=== PATIENT | female | born 1995 | race Caucasian/White ===

== ENCOUNTER 2018-05-03 06:00 | Inpatient (IN) ==
[2018-05-03] MEDS ORDERED: EPHEDrine 50 MG/ML VIAL IVP PRN (07:12)
[2018-05-03] MEDS ORDERED: Lidocaine -MPF 1% 2 ML VIAL ONE (07:12)
--- NOTE | 2018-05-03 07:14 | Anesthesia Evaluation PreOp ---
Date of Encounter: 05/03/18 Time of Encounter: 07:05 - Past History Planned Operation: vaginal del, induction previous PPH Cardiac History: Denies any Significant Hx Pulmonary History: Denies Any Significant HX MANAGER BUSINESS PROCESS History: Denies Any Significant HX Other Medical History: Other (depression) Anesthesia History: No Prior Anesthetic Complications, Past Anesthesia ( previous epidural "worked fine") Alcohol Use: none Drug use: none Medications and Allergies Escitalopram [Lexapro] 10 mg PO DAILY 02/25/16 [History] Flintstones Complete 1 tab PO DAILY 05/03/18 [History] 3 Allergy/AdvReac Type Severity Reaction Status Date / Time No Known Allergies Allergy Verified 08/31/17 11:03 Anesthesia Exam - HEENT Pupil (Motor): Pupils equal Mallampati: III Teeth: Normal Oral Opening: Greater than 3 - MANAGER BUSINESS PROCESS LOC: Oriented MANAGER BUSINESS PROCESS Motor: Normal RUE, Normal LUE, Normal RLE, Normal LLE, Normal Face MANAGER BUSINESS PROCESS Sensory: Normal: RUE, LUE, RLE, LLE, Face - Cardiac Rhythm: Regular Murmur: None - Pulmonary Breath Sounds: bilateral Clear Respiratory Effort: Symmetrical Anesthesia Assess/Plan ASA Score: 2 Modified Salbador Scale for Level of Consciousness: Cooperative, oriented, and tranquil Anesthetic Plan: General, Regional Monitoring Plan: Standard Monitors Recovery Plan: PACU
[2018-05-03] MEDS ORDERED: Epidural Premix (fent/bupiv) 110 ML EP SCH (07:15)
[2018-05-03] MEDS ORDERED: Metoclopramide 10 MG/2 ML VIAL IVP PRN ×2 (07:41→17:21)
[2018-05-03] MEDS ORDERED: Ondansetron 4 MG/2 ML VIAL IVP PRN ×2 (07:41→17:21)
[2018-05-03] MEDS ORDERED: *HR* Nalbuphine 10 MG/ML AMPUL IVP PRN (07:41)
[2018-05-03] MEDS ORDERED: Famotidine 20 MG/2 ML VIAL IVP PRN (07:41)
[2018-05-03] MEDS ORDERED: Ringers Solution, Lactated 1,000 ML IVC SCH (07:45)
[2018-05-03] MEDS ORDERED: Oxytocin 20 units/ LR 1000 mL 20 UNIT/1,000 ML BAG IVC SCH (07:45)
[2018-05-03] MEDS ORDERED: Penicillin G Potassium 5,000,000 UNIT in 0.9 % Sodium Chloride Mini Bag 100 ML IVPB ONE (08:00)
[2018-05-03] MEDS ORDERED: Penicillin G Potassium 2,500,000 UNIT in 0.9 % Sodium Chloride 100 ML IVPB SCH (12:00)
[2018-05-03 12:40] LABS: Basophils % 0.2 %; Eosinophils # 0.1 K/mcL (0.0-0.6); Eosinophils % 0.5 %; Hematocrit 41.9 % (35.3-44.9); Hemoglobin 14.1 g/dL (11.5-15.4); Lymphocytes # 2.1 K/mcL (0.6-4.6); Lymphocytes % 20.5 %; Mean Corpuscular HGB Conc 33.7 g/dL (31.6-35.5); Mean Corpuscular Volume 89.1 fL (83.0-100.0); Monocytes # 0.8 K/mcL (0.0-1.3); Monocytes % 7.5 %; Neutrophils # 7.2 K/mcL (1.6-8.9); Platelet Count 194 K/mcL (140-400); Red Cell Distribution Width 13.4 % (11.5-14.5); Segmented Neutrophils % 70.3 %
[2018-05-03 13:16] LABS: Amphetamine Screen,Urine Negative ng/mL (Cutoff=1000); Barbiturate Screen,Urine Negative ng/mL (Cutoff=200); Benzodiazepines Screen,Urine Negative ng/mL (Cutoff=200); Cannabinoid Screen,Urine Negative ng/mL (Cutoff = 50); Cocaine Screen,Urine Negative ng/mL (Cutoff= 300); Opiate Screen,Urine Negative ng/mL (Cutoff=300); Phencyclidine Screen,Urine Negative ng/mL (Cutoff=25)
[2018-05-03] MEDS ORDERED: *HR* FentaNYL (PF) 100 MCG/2 ML VIAL ONE (13:42)
--- NOTE | 2018-05-03 13:50 | OB Labor Progress Note ---
Date of Encounter: 05/03/18 Time of Encounter: 13:22 Labor Progress Note - Subjective Subjective: Pt states she thinks her water broke, large amount of bleeding noted on pad, ambulated to restroom, large clots noted on floor and in toilet. - Heart Tones Heart Tones: cat 1 - Interventions Interventions: called to room at 1322. large amount of bleeding noted. Cervical exam shows vaginal vault filled with clots, Dr. Alberts called to bedside, Dr. Downing called to hospital. Unable to reach cervix through clots, speculum exam shows thick clots and active bleeding, Large amount of clots cleared from vagina. 350g loss on pad plus more on floor and in toilet. Cervix 4/80/-2/vtx noted. Dr. Alberts present for speculum exam, decision to prep for section made and patient consented by Dr. Alberts - Plan Plan: Dr. Downing and Aristeo notified and called to bedside. Prep for section Type and cross of 2 units.
[2018-05-03] MEDS ORDERED: *HR* Oxytocin 10 UNIT/ML VIAL IM ONE (13:53)
[2018-05-03] MEDS ORDERED: *HR* Succinylcholine 200 MG/10 ML VIAL IVP ONE (13:53)
[2018-05-03] MEDS ORDERED: Propofol 500 MG/50 ML INFUS..BTL ONE (13:53)
[2018-05-03] MEDS ORDERED: *HR* Phenylephrine 10 MG/ML VIAL ONE (13:54)
[2018-05-03] MEDS ORDERED: *HR* Morphine Sulfate/PF 10 MG/10 ML AMPUL ONE ×2 (13:58→14:26)
--- NOTE | 2018-05-03 14:33 | OB/GYN Procedure Note ---
Section - Date of procedure: 05/03/18 Preop diagnosis: other (abruption) Post-op diagnosis: same Procedure: section, primary low transverse Surgeon: Storm Carr Quantitated Blood Loss: 500 Was there an travel assistant present: Yes Shore Hand Dredge Or Barge: Irma Duffy Anesthesiologist: Lindsay Vaughan Per Diem Physical Therapist Assistant: Emelia West Anesthesia Type: General section complications: none Disposition: PACU Specimens: Placenta, Cord blood, Cord gasses - (s) Infant A Delivery Date: 05/03/18 Infant Delivery Time: 14:34 Presentation: vertex Position: OA Route of delivery: other Gender: Male Viability: Viable Pounds: 6 Ounces: 13 Gram Weight: 3.095 kg at 1 minute: 4 at 5 minutes: 6 at 10 minutes: 7 Specimens collected: cord blood, arterial cord gases Placenta: partial extraction Cord: 3 umbilical vessels - Narrative Narrative: 23-year-old female scheduled for induction of labor at 39+ weeks. Patient was induced with Pitocin. Patient progressed to 4 cm and began having heavy vaginal bleeding with clots. Patient checked by wage and hour investigator found to be bleeding heavily with large clots in the vagina. Patient taken for stat section. Informed consent obtained. Patient taken back to the operating room with her IV in place. Patient was given general anesthesia. Betadine wash performed. Once patient asleep a peristalsis was made carried sharply through subcutaneous taste and fatty tissue to the fascial layer Treese. The fascia was then incised bilaterally and dissected bluntly. Rectus abdominis musculature was severed the midline. The peritoneum was entered sharply entered. The incision was bluntly extended. A bladder blade was placed at the inferior margin incision. Bladder flap developed. A low transverse incision was then made lower segment of the uterus. Infant's head was visible. A vacuum was utilized to bring the infant's head up. Infant was then delivered without difficulty. Infant cried on delivery cord clamped and cut. Infant passed to NICU team in attendance. Cord blood and gases obtained. Placenta delivered via uterine lavage and massage. Uterine incision was then closed the Vicryl suture running locking fashion. Uterus was placed the pelvic cavity pelvic cavity was rinsed thoroughly with sterile water times 2C no bleeding the procedure was terminated. Sponge, needle, and instrument counts correct 2. The fascia was then closed with 0 Vicryl suture running nonlocking fashion. Suprafascial region service early sterile water 2 all bleeders cauterized. The skin was closed speedy.
[2018-05-03] MEDS ORDERED: Ondansetron 4 MG/2 ML VIAL IVP ONE (14:42)
[2018-05-03] MEDS ORDERED: Acetaminophen IV 1,000 MG/100 ML INFUS..BTL IVPB ONE (14:42)
[2018-05-03] MEDS ORDERED: *HR* Morphine 2 MG/ML SYRINGE IVP PRN (14:42)
[2018-05-03] MEDS ORDERED: Naloxone 0.4 MG/ML INJ IVP PRN (14:45)
[2018-05-03] MEDS ORDERED: *HR* HYDROmorphone 20 MG/20 ML PCA IVC PRN (14:45)
[2018-05-03] MEDS ORDERED: Rho Immune Globulin 1,500 UNIT SYRINGE IM ONE (17:21)
[2018-05-03] MEDS ORDERED: Sennosides 8.6 MG TABLET PO PRN (17:21)
[2018-05-03] MEDS ORDERED: Lanolin 28 GM TUBE TP PRN (17:21)
[2018-05-03] MEDS ORDERED: Ondansetron 4 MG/2 ML VIAL ONE (17:54)
[2018-05-03] MEDS ORDERED: Dexamethasone 4 MG/ML VIAL ONE (17:54)
[2018-05-03] MEDS: cefOXitin 1,000 MG in 0.9 % Sodium Chloride Mini Bag 100 ML IVPB SCH (18:42)
[2018-05-03] MEDS: *HR* OxyCODONE/APAP 5/325 TABLET PO PRN (20:33)
[2018-05-03] MEDS: Oxytocin 20 units/ LR 1000 mL 20 UNIT/1,000 ML BAG IVC SCH ×2 (23:21→23:22)
[2018-05-04] MEDS: Ibuprofen 600 MG TABLET PO PRN ×3 (00:18→20:15)
[2018-05-04] MEDS: cefOXitin 1,000 MG in 0.9 % Sodium Chloride Mini Bag 100 ML IVPB SCH ×2 (03:07→09:30)
[2018-05-04] MEDS: *HR* OxyCODONE/APAP 5/325 TABLET PO PRN ×4 (04:23→16:44)
[2018-05-04 04:48] LABS: Basophils % 0.2 %; Eosinophils % 0.1 %; Hematocrit 22.8 % (35.3-44.9); Immature Granulocytes % 0.5 % (0-4); Lymphocytes # 1.2 K/mcL (0.6-4.6); Lymphocytes % 10.5 %; Mean Corpuscular HGB Conc 34.2 g/dL (31.6-35.5); Mean Corpuscular Hemoglobin 29.3 pg (28.0-33.3); Mean Corpuscular Volume 85.7 fL (83.0-100.0); Mean Platelet Volume 9.6 fL (9.4-12.4); Monocytes # 0.7 K/mcL (0.0-1.3); Monocytes % 6.2 %; Neutrophils # 9.7 K/mcL (1.6-8.9); Platelet Count 131 K/mcL (140-400); Red Blood Count 2.66 M/mcL (3.82-4.97); Red Cell Distribution Width 13.2 % (11.5-14.5); Segmented Neutrophils % 82.5 %
[2018-05-04 05:00] LABS: Hemoglobin 7.8 g/dL (11.5-15.4)
--- NOTE | 2018-05-04 07:30 | OB/GYN Progress Note ---
Date of Encounter: 05/04/18 Time of Encounter: 07:27 - Assessment and Plan (1) 39 weeks gestation of Current Visit: Yes Status: Acute (2) Placental abruption affecting delivery Current Visit: Yes Status: Acute (3) Delivery by section at 37-39 weeks of gestation due to labor Current Visit: Yes Status: Acute (4) Delivery by emergency Current Visit: Yes Status: Acute Subjective - Subjective Principal diagnosis: s/p section Interval history: 23 yo female for scheduled induction . Abruption occurred. Pt went for stat section. Mother and baby doing well. Patient reports: appetite normal, pain well controlled, ambulating normally, no dizzy ambulation : doing well, nursing well Objective - Vital Signs Latest vital signs: Vital Signs Temp Pulse Resp BP Pulse Ox 05/04/18 03:21 16 05/04/18 03:20 98.2 F 110 16 115/76 98 05/03/18 23:10 98.2 F 103 18 118/79 99 05/03/18 19:05 97.7 F 104 14 115/72 100 05/03/18 18:47 98.2 F 109 14 107/72 100 05/03/18 17:36 97.7 F 102 14 110/74 100 05/03/18 17:10 97.8 F 109 14 108/69 98 Intake and Output 05/03/18 05/03/18 05/04/18 15:59 23:59 07:59 Intake Total 400 / 400 300 / 300 Output Total 530 / 530 1590 / 1590 Balance -130 / -130 -1290 / -1290 Intake: IV Fluids 100 / 100 Mefoxin 1,000 MG In 0.9 % 100 / 100 Sodium Chloride (Mini-Bag +) 100 ML @ 200 mls/hr IVPB Q8H [facility] Rx#:[id number] Oral 300 / 300 300 / 300 Output: Catheter 530 / 530 1590 / 1590 Urethral (Gonzales) 250 / 250 900 / 900 Other: Weight 73.4 kg 72.575 kg Patient Weight 05/04/18 23:59 Weight 72.575 kg - Exam Lungs: bilateral: normal Chest: Normal S1, Normal S2 Extremities: Present: normal Abdomen: Present: normal appearance Incision: Present: normal, dry, intact Uterus: Present: normal - Labs Labs: Laboratory Results - last 24 hr 05/03/18 05/03/18 05/03/18 06:48 07:30 07:30 WBC 10.3 RBC 4.70 Hgb 14.1 Hct 41.9 MCV 89.1 MCH 30.0 MCHC 33.7 RDW 13.4 Plt Count 194 MPV 10.0 Immature Gran % 1.0 Seg Neutrophils % 70.3 Lymphocytes % 20.5 Monocytes % 7.5 Eosinophils % 0.5 Basophils % 0.2 Neutrophils # 7.2 Lymphocytes # 2.1 Monocytes # 0.8 Eosinophils # 0.1 Basophils # 0.0 Urine Opiates Screen Negative Ur Barbiturates Screen Negative Ur Phencyclidine Scrn Negative Ur Amphetamines Screen Negative U Benzodiazepines Scrn Negative Urine Cocaine Screen Negative U Marijuana (THC) Screen Negative Ur Drug Screen Interp See Below Specimen Rejected Blood Type O NEGATIVE Antibody Screen NEGATIVE Crossmatch See Detail 05/03/18 05/04/18 07:30 04:12 WBC 11.8 H RBC 2.66 L Hgb 7.8 L D Hct 22.8 L MCV 85.7 MCH 29.3 MCHC 34.2 RDW 13.2 Plt Count 131 L MPV 9.6 Immature Gran % 0.5 Seg Neutrophils % 82.5 Lymphocytes % 10.5 Monocytes % 6.2 Eosinophils % 0.1 Basophils % 0.2 Neutrophils # 9.7 H Lymphocytes # 1.2 Monocytes # 0.7 Eosinophils # 0.0 Basophils # 0.0 Urine Opiates Screen Ur Barbiturates Screen Ur Phencyclidine Scrn Ur Amphetamines Screen U Benzodiazepines Scrn Urine Cocaine Screen U Marijuana (THC) Screen Ur Drug Screen Interp Specimen Rejected Miscellaneous Blood Type Antibody Screen Crossmatch
[2018-05-04] MEDS: Oxytocin 20 units/ LR 1000 mL 20 UNIT/1,000 ML BAG IVC SCH (07:51)
[2018-05-04] MEDS: Prenatal Vit/FA 1 EACH TABLET PO SCH (07:52)
[2018-05-04] MEDS ORDERED: Acetaminophen 325 MG TABLET PO PRN (12:50)
[2018-05-04] MEDS: Simethicone 80 MG TAB.CHEW PO PRN ×2 (12:52→20:17)
[2018-05-05] MEDS: Ibuprofen 600 MG TABLET PO PRN (04:05)
[2018-05-05] MEDS: *HR* OxyCODONE/APAP 5/325 TABLET PO PRN (04:05)
[2018-05-05 08:35] VITALS: BP 104/71
[2018-05-05] MEDS: Prenatal Vit/FA 1 EACH TABLET PO SCH (09:27)
--- NOTE | 2018-05-05 12:17 | OB/GYN Progress Note ---
Date of Encounter: 05/05/18 Time of Encounter: 12:15 - Assessment and Plan (1) 39 weeks gestation of Current Visit: Yes Status: Acute (2) Placental abruption affecting delivery Current Visit: Yes Status: Acute (3) Delivery by section at 37-39 weeks of gestation due to labor Current Visit: Yes Status: Acute (4) Delivery by emergency Current Visit: Yes Status: Acute Subjective - Subjective Principal diagnosis: s/p emergent for abruption Interval history: 23 yo female POD#2 s/p emergent for abruption. Doing well today. Uncomplicated course. Mother and baby doing well Pt wishes to go home today. Patient reports: appetite normal, voiding normally, pain well controlled, ambulating normally [place]: doing well Objective - Vital Signs Latest vital signs: Vital Signs Temp Pulse Resp BP Pulse Ox 05/05/18 08:40 16 05/05/18 07:50 97.9 F 98 16 104/71 100 05/05/18 04:05 97.9 F 87 14 112/77 99 05/04/18 20:00 98.1 F 75 14 119/72 98 05/04/18 19:45 99.0 F 116 14 130/88 100 05/04/18 16:00 98.1 F 114 16 121/81 100 Intake and Output 05/04/18 05/05/18 05/05/18 23:59 07:59 15:59 Intake Total 1700 / 1700 1050 / 1050 Output Total 1200 / 1200 1600 / 1600 Balance 500 / 500 -550 / -550 Intake: Oral 1700 / 1700 1050 / 1050 Output: Urine 1200 / 1200 1600 / 1600 Other: Meal Dinner Percent of Meal Consumed 100% Weight 76.5 kg Patient Weight 05/05/18 23:59 Weight 76.5 kg
--- NOTE | 2018-05-05 12:19 | Discharge Summary ---
Date of Encounter: 05/05/18 Time of Encounter: 12:19 - Discharge Diagnosis (1) 39 weeks gestation of Priority: Secondary Status: Acute (2) Placental abruption affecting delivery Priority: Secondary Status: Acute (3) Delivery by section at 37-39 weeks of gestation due to labor Priority: Secondary Status: Acute (4) Delivery by emergency Priority: Primary Status: Acute - Discharge Medications Home Medications: Escitalopram [Lexapro] 10 mg PO DAILY 02/25/16 [History] Flintstones Complete 1 tab PO DAILY 05/03/18 [History] Allergies/Adverse Reactions: 3 Allergy/AdvReac Type Severity Reaction Status Date / Time No Known Allergies Allergy Verified 08/31/17 11:03 Data Procedures and tests throughout hospitalization: Laboratory Tests 05/03/18 05/03/18 05/03/18 06:48 07:30 07:30 WBC 10.3 RBC 4.70 Hgb 14.1 Hct 41.9 MCV 89.1 MCH 30.0 MCHC 33.7 RDW 13.4 Plt Count 194 MPV 10.0 Immature Gran % 1.0 Seg Neutrophils % 70.3 Lymphocytes % 20.5 Monocytes % 7.5 Eosinophils % 0.5 Basophils % 0.2 Neutrophils # 7.2 Lymphocytes # 2.1 Monocytes # 0.8 Eosinophils # 0.1 Basophils # 0.0 Urine Opiates Screen Negative Ur Barbiturates Screen Negative Ur Phencyclidine Scrn Negative Ur Amphetamines Screen Negative U Benzodiazepines Scrn Negative Urine Cocaine Screen Negative U Marijuana (THC) Screen Negative Ur Drug Screen Interp See Below Specimen Rejected Blood Type O NEGATIVE Antibody Screen NEGATIVE Baby's Blood Type Mother's Blood Type Rhogam Indicated Crossmatch See Detail 05/03/18 05/03/18 05/04/18 07:30 15:30 04:12 WBC 11.8 H RBC 2.66 L Hgb 7.8 L D Hct 22.8 L MCV 85.7 MCH 29.3 MCHC 34.2 RDW 13.2 Plt Count 131 L MPV 9.6 Immature Gran % 0.5 Seg Neutrophils % 82.5 Lymphocytes % 10.5 Monocytes % 6.2 Eosinophils % 0.1 Basophils % 0.2 Neutrophils # 9.7 H Lymphocytes # 1.2 Monocytes # 0.7 Eosinophils # 0.0 Basophils # 0.0 Urine Opiates Screen Ur Barbiturates Screen Ur Phencyclidine Scrn Ur Amphetamines Screen U Benzodiazepines Scrn Urine Cocaine Screen U Marijuana (THC) Screen Ur Drug Screen Interp Specimen Rejected Miscellaneous Blood Type Antibody Screen Baby's Blood Type A RH NEGATIVE Mother's Blood Type O RH NEGATIVE Rhogam Indicated NO Crossmatch - Impressions ITS Impressions KUB X-Ray 05/03/18 13:59 IMPRESSION: No definite foreign body seen status post D/ / Yeison Walker MD / Yeison Walker MD Interpreting Provider: Yeison Walker MD Date of admission: 05/03/18 06:16 Primary care physician: Jada Canales - Patient Status Disposition: Home, Self-Care Condition: Good Functional capacity at discharge: independent ambulation Overall status at discharge: patient is back to baseline - Discharge Instructions Follow Up With: Jada Canales MD [Primary Care Provider] - - Diet and Activity Activity: increase activity as tolerated Diet: advance to your usual diet, regular diet Hospital Course SEXOLOGIST Time Attestation: Total time spent providing and/or coordinating discharge services: Exam - Constitutional Vitals: Temp Pulse Resp BP Pulse Ox 97.9 F 98 16 104/71 100 05/05/18 07:50 05/05/18 07:50 05/05/18 08:40 05/05/18 07:50 05/05/18 07:50 General appearance IM: A&O X 3 - Respiratory Respiratory exam: Present: CTAB - Cardiovascular Cardiovascular exam IM: Present: RRR - GI/Abdominal Incision: normal, dry, intact - External exam: normal external exam Uterine Tone: Firm Uterus Position: 3 Fingers Below Umbilicus - Extremities Exam Extremities exam IM: Present: normal inspection - Neurological Exam Neurological exam: normal gait - VTE Reasons for not Prescribing Prophylaxis: Treatment not Indicated - Low risk for VTE Documentation of Mechanical Device: Intermittent pneumatic compression device
== END 2018-05-05 13:14 | disposition home or self-care (01) | DRG 765 ==
LOC: 1NENULAB 06:16 → 1NENUOBS 17:04
PROVIDERS: ADMIT Obstetrics & Gynecology; ATTEND Obstetrics & Gynecology